=== PATIENT | female | born 1985 | race Caucasian/White ===

== ENCOUNTER 2019-04-27 13:19 | Inpatient (IN) | payer BC, OTHER ==
[~2019-04-27] VITALS: Ht 170.2 cm; Wt 105.0 kg
[2019-04-27] VITALS (14 sets, daily range): BP systolic 96–122; BP diastolic 53–78
[~2019-04-27 13:19] MED LIST: PANT-47 PO; SUCR1ORA12 PO
[2019-04-27 13:58] LABS: BASOPHILS # (AUTO) 0.1 X10'3 (0-0.2); BASOPHILS % (AUTO) 0.7 % (0-1); EOSINOPHILS # (AUTO) 0.1 X10'3 (0-0.9); EOSINOPHILS % (AUTO) 1.1 % (0-6); LYMPHOCYTES % (AUTO) 25.4 % (21-51); MEAN CORPUSCULAR HEMOGLOBIN 26.8 PG (27.0-31.0); MEAN CORPUSCULAR HGB CONC 32.3 g/dL (33.0-36.5); MEAN PLATELET VOLUME 7.8 FL (7.4-10.4); MONOCYTES # (AUTO) 0.7 X10'3 (0-0.9); MONOCYTES % (AUTO) 6.2 % (2-12); NEUTROPHILS # (AUTO) 7.8 X10'3 (1.8-7.7); NEUTROPHILS % (AUTO) 66.6 % (42-75); PLATELET COUNT 401 X10'3 (140-440); RED BLOOD COUNT 2.41 X10'6 (4.20-5.60); RED CELL DISTRIBUTION WIDTH 15.6 % (11.5-14.5); WHITE BLOOD COUNT 11.7 X10'3 (4.5-11.0)
[2019-04-27 14:03] LABS: HEMOGLOBIN 6.4 g/dl (12.0-16.0)
[2019-04-27] MEDS ORDERED: pantoprazole IV 80 MG in normal saline 100ml IV soln 100 ML IV ONE (14:05)
[2019-04-27] MEDS ORDERED: normal saline 1000ML IV soln IV ONE (14:05)
[2019-04-27] MEDS ORDERED: ESOMEPRAZOLE 40 MG VIAL IV ONE (14:11)
[2019-04-27 14:21] LABS: ALANINE AMINOTRANSFERASE 29 U/L (12-78); ALBUMIN 3.8 G/DL (3.4-5.0); ALBUMIN/GLOBULIN RATIO 1.2 (1.1-1.5); ALKALINE PHOSPHATASE 60 IU/L (46-116); ANION GAP 8 (8-16); ASPARTATE AMINO TRANSFERASE 18 U/L (10-37); BILIRUBIN,TOTAL 0.2 MG/DL (0.1-1.0); BLOOD UREA NITROGEN 16 MG/DL (7-18); BUN/CREATININE RATIO 23.9 (6.6-38.0); CALCIUM 8.8 MG/DL (8.5-10.1); CHLORIDE 107 MMOL/L (99-107); CREATININE 0.67 MG/DL (0.40-0.90); GLUCOSE 115 MG/DL (70-104); POTASSIUM 3.7 MMOL/L (3.5-5.1); SODIUM 139 MMOL/L (135-145); TOTAL CARBON DIOXIDE 23.6 MMOL/L (24-32); TOTAL PROTEIN 7.1 G/DL (6.4-8.2); eGFR > 90 ML/MIN
[2019-04-27 14:38] LABS: D-DIMER 0.35 MG/L FEU (0-0.50)
[2019-04-27] MEDS ORDERED: PANT-47 PO (15:35)
[2019-04-27] MEDS ORDERED: MULT-933 PO (15:35)
[2019-04-27] MEDS ORDERED: SUCR1ORA PO (15:35)
[2019-04-27] MEDS ORDERED: ondansetron/PF 4mg/2ml inj IV PRN (16:00)
[2019-04-27] MEDS ORDERED: acetaminophen 325mg tablet PO PRN (16:00)
[2019-04-27] MEDS ORDERED: magnesium Cl slow-release 64mg tablet PO PRN (16:00)
[2019-04-27] MEDS ORDERED: potassium Cl 20 mEq SR tablet PO PRN (16:00)
[2019-04-27] MEDS ORDERED: pantoprazole 40MG/NS 100ML BAG 100 ML IV SCH (16:00)
[2019-04-27] MEDS ORDERED: morphine 2 MG/ML inj. syringe IV PRN (16:00)
[2019-04-27] MEDS ORDERED: potassium CL 10mEq/100ml bag 100 ML IV PRN ×2 (16:00)
[2019-04-27] MEDS ORDERED: magnesium 4gm in 100ml NS 100 ML IV PRN (16:00)
[2019-04-27] MEDS ORDERED: magnesium 2GM in 50ml NS 50 ML IV PRN (16:00)
--- NOTE | 2019-04-27 16:35 | NUR ---
Page sent to Dr Kirby at this time to sign blood transfusion consent.
--- NOTE | 2019-04-27 16:39 | NUR ---
Per Dr Kirby via telephone; hold blood transfusion until "scope" procedure is finished.
[2019-04-27] MEDS: HYDROcodone/acetaminophen 5mg/325mg tablet PO PRN (17:14)
--- NOTE | 2019-04-27 17:40 | NUR ---
Received report from GAGAN Morin in ED. Patient arrived to floor with BP 114/59, HR 100, O2 saturation 100% on room air, RR 18 temp of 97.9 F. Patient scheduled for scope procedure in GI lab. Called GI lab and patient to leave shortly for procedure.
[2019-04-27] MEDS ORDERED: LIDOcaine Viscous 15ml cup ONE (18:22)
[2019-04-27] MEDS ORDERED: MIDAZolam 5mg/5ml vial ONE ×2 (18:22→18:55)
[2019-04-27] MEDS ORDERED: fentaNYL/PF 50MCG/1 ML 2ML syringe ONE ×2 (18:22→18:55)
--- NOTE | 2019-04-27 18:40 | NUR ---
Patient in room [facility]. I have received report from GAGAN Khanna and had the opportunity to ask questions and assume patient care. Addendum: 04/27/19 at 1840 by Arianna Avalos RN Amended: Links added. Addendum: 04/27/19 at 1842 by Arianna Avalos RN patient was taken at GI lab at 1820
--- NOTE | 2019-04-27 18:40 | NUR ---
patient left for GI lab, pt stable and appropriate for transfer.
--- NOTE | 2019-04-27 18:40 | NUR ---
Problems reprioritized. Patient report given, questions answered & plan of care reviewed with Carola Zaman RN.
[2019-04-27] MEDS ORDERED: PEG 3350/Na sulf,bicarb,Cl/KCl oral sol 4 liter bottle PO ONE (19:25)
--- NOTE | 2019-04-27 19:50 | NUR ---
PATIENT JUST CAME BACK FROM GI LAB
--- NOTE | 2019-04-27 19:54 | NUR ---
Patient in room [facility]. I have received report from MARK SANTOS RN and had the opportunity to ask questions and assume patient care.
[2019-04-27] MEDS: heparin, porcine 5000 units/ml vial SQ SCH (20:00)
[2019-04-27] MEDS: docusate sod 100mg capsule PO SCH (20:00)
[2019-04-27] MEDS ORDERED: temazepam 15mg capsule PO PRN (21:00)
[2019-04-27] MEDS: acetaminophen 325mg tablet PO PRN (22:12)
[2019-04-27] MEDS: normal saline 1000ml 1,000 ML IV SCH (23:25)
[2019-04-28] VITALS (16 sets, daily range): BP systolic 96–116; BP diastolic 52–67
[2019-04-28] MEDS: normal saline 1000ml 1,000 ML IV SCH ×2 (01:57→12:10)
[2019-04-28 02:17] LABS: BASOPHILS % (AUTO) 0.7 % (0-1); EOSINOPHILS # (AUTO) 0.1 X10'3 (0-0.9); EOSINOPHILS % (AUTO) 1.4 % (0-6); LYMPHOCYTES % (AUTO) 41.9 % (21-51); MEAN CORPUSCULAR HEMOGLOBIN 27.6 PG (27.0-31.0); MEAN CORPUSCULAR HGB CONC 33.5 g/dL (33.0-36.5); MEAN CORPUSCULAR VOLUME 82.5 FL (78-98); MEAN PLATELET VOLUME 7.8 FL (7.4-10.4); MONOCYTES # (AUTO) 0.5 X10'3 (0-0.9); MONOCYTES % (AUTO) 6.8 % (2-12); NEUTROPHILS # (AUTO) 3.5 X10'3 (1.8-7.7); NEUTROPHILS % (AUTO) 49.2 % (42-75); PLATELET COUNT 325 X10'3 (140-440); RED BLOOD COUNT 2.48 X10'6 (4.20-5.60); RED CELL DISTRIBUTION WIDTH 14.8 % (11.5-14.5)
[2019-04-28 02:20] LABS: HEMATOCRIT 20.4 % (35.0-45.0); HEMOGLOBIN 6.8 g/dl (12.0-16.0)
[2019-04-28 02:31] LABS: ALBUMIN 3.1 G/DL (3.4-5.0); ANION GAP 7 (8-16); BLOOD UREA NITROGEN 10 MG/DL (7-18); BUN/CREATININE RATIO 16.9 (6.6-38.0); CALCIUM 8.3 MG/DL (8.5-10.1); CHLORIDE 111 MMOL/L (99-107); CREATININE 0.59 MG/DL (0.40-0.90); GLUCOSE 94 MG/DL (70-104); MAGNESIUM 1.9 MG/DL (1.5-2.4); POTASSIUM 3.4 MMOL/L (3.5-5.1); SODIUM 142 MMOL/L (135-145); TOTAL CARBON DIOXIDE 23.6 MMOL/L (24-32); eGFR > 90 ML/MIN
--- NOTE | 2019-04-28 02:45 | NUR ---
H/H resulted at 6.8/20.[address] Marquez with an order of 1 unit PRBC to transfuse. Orders carried out. Addendum: 04/28/19 at 0329 by Arianna Avalos RN Amended: Links added.
[2019-04-28] MEDS: potassium Cl 20 mEq SR tablet PO PRN ×3 (03:10→17:52)
--- NOTE | 2019-04-28 06:30 | NUR ---
Patient in room [facility]. I have received report from Carola Ayala RN and had the opportunity to ask questions and assume patient care.
--- NOTE | 2019-04-28 06:30 | NUR ---
Problems reprioritized. Patient report given, questions answered & plan of care reviewed with GAGAN Stewart.
[2019-04-28] MEDS: docusate sod 100mg capsule PO SCH ×2 (08:00→21:13)
[2019-04-28] MEDS: K and/or MAG REPLACEMENT MC SCH (08:00)
[2019-04-28] MEDS: heparin, porcine 5000 units/ml vial SQ SCH ×2 (08:00→21:13)
[2019-04-28 09:16] LABS: HEMATOCRIT 22.7 % (35.0-45.0); HEMOGLOBIN 7.6 g/dl (12.0-16.0); MEAN CORPUSCULAR HEMOGLOBIN 27.5 PG (27.0-31.0); MEAN CORPUSCULAR HGB CONC 33.3 g/dL (33.0-36.5); MEAN CORPUSCULAR VOLUME 82.7 FL (78-98); MEAN PLATELET VOLUME 8.1 FL (7.4-10.4); PLATELET COUNT 345 X10'3 (140-440); RED BLOOD COUNT 2.75 X10'6 (4.20-5.60); RED CELL DISTRIBUTION WIDTH 15.1 % (11.5-14.5); WHITE BLOOD COUNT 6.7 X10'3 (4.5-11.0)
[2019-04-28] MEDS: ESOMEPRAZOLE 40 MG VIAL IV SCH ×2 (09:56→21:10)
[2019-04-28] MEDS: HYDROcodone/acetaminophen 5mg/325mg tablet PO PRN ×2 (09:58→17:52)
--- NOTE | 2019-04-28 12:23 | NUR ---
informed of low BP of 97/67. No new orders at this time.
--- NOTE | 2019-04-28 14:27 | NUR ---
Pt taken down to GI lab via W/C.
[2019-04-28] MEDS ORDERED: fentaNYL/PF 50MCG/1 ML 2ML syringe ONE (14:36)
[2019-04-28] MEDS ORDERED: MIDAZolam 5mg/5ml vial ONE (14:36)
--- NOTE | 2019-04-28 18:24 | NUR ---
Patient in room [facility]. I have received report from GAGAN Stewart and had the opportunity to ask questions and assume patient care. Addendum: 04/28/19 at 1824 by Arianna Avalos RN Amended: Links added.
--- NOTE | 2019-04-28 18:27 | NUR ---
Problems reprioritized. Patient report given, questions answered & plan of care reviewed with Carola Ayala RN.
[2019-04-29] VITALS (8 sets, daily range): BP systolic 94–110; BP diastolic 57–71
[2019-04-29] MEDS: normal saline 1000ml 1,000 ML IV SCH ×3 (00:54→17:57)
[2019-04-29] MEDS: acetaminophen 325mg tablet PO PRN ×2 (03:56→11:38)
[2019-04-29 06:26] LABS: BASOPHILS % (AUTO) 0.7 % (0-1); EOSINOPHILS # (AUTO) 0.2 X10'3 (0-0.9); EOSINOPHILS % (AUTO) 2.4 % (0-6); HEMOGLOBIN 7.1 g/dl (12.0-16.0); LYMPHOCYTES # (AUTO) 2.6 X10'3 (1.1-4.8); LYMPHOCYTES % (AUTO) 36.6 % (21-51); MEAN CORPUSCULAR HEMOGLOBIN 27.8 PG (27.0-31.0); MEAN CORPUSCULAR HGB CONC 33.4 g/dL (33.0-36.5); MEAN CORPUSCULAR VOLUME 83.1 FL (78-98); MEAN PLATELET VOLUME 7.9 FL (7.4-10.4); MONOCYTES # (AUTO) 0.5 X10'3 (0-0.9); MONOCYTES % (AUTO) 6.8 % (2-12); NEUTROPHILS # (AUTO) 3.8 X10'3 (1.8-7.7); NEUTROPHILS % (AUTO) 53.5 % (42-75); PLATELET COUNT 337 X10'3 (140-440); RED BLOOD COUNT 2.55 X10'6 (4.20-5.60); RED CELL DISTRIBUTION WIDTH 15.4 % (11.5-14.5)
[2019-04-29 06:27] LABS: ALBUMIN 2.9 G/DL (3.4-5.0); ANION GAP 7 (8-16); BLOOD UREA NITROGEN 3 MG/DL (7-18); BUN/CREATININE RATIO 5.7 (6.6-38.0); CALCIUM 8.3 MG/DL (8.5-10.1); CHLORIDE 111 MMOL/L (99-107); CREATININE 0.53 MG/DL (0.40-0.90); GLUCOSE 92 MG/DL (70-104); MAGNESIUM 1.8 MG/DL (1.5-2.4); POTASSIUM 3.7 MMOL/L (3.5-5.1); SODIUM 142 MMOL/L (135-145); TOTAL CARBON DIOXIDE 23.6 MMOL/L (24-32); eGFR > 90 ML/MIN
--- NOTE | 2019-04-29 06:30 | NUR ---
Patient in room [facility]. I have received report from Carola Ayala RN and had the opportunity to ask questions and assume patient care.
--- NOTE | 2019-04-29 06:39 | NUR ---
Problems reprioritized. Patient report given, questions answered & plan of care reviewed with GAGAN Stewart. Addendum: 04/29/19 at 0639 by Arianna Avalos RN Amended: Links added.
[2019-04-29 06:57] LABS: HEMATOCRIT 21.2 % (35.0-45.0)
[2019-04-29] MEDS: heparin, porcine 5000 units/ml vial SQ SCH (08:00)
[2019-04-29] MEDS: docusate sod 100mg capsule PO SCH (08:00)
[2019-04-29] MEDS: K and/or MAG REPLACEMENT MC SCH (08:00)
[2019-04-29] MEDS: ESOMEPRAZOLE 40 MG VIAL IV SCH (08:15)
--- NOTE | 2019-04-29 10:52 | NUR ---
Dr. Langley informed of low BP this AM of . No new orders at this time.
[2019-04-29 17:29] LABS: HEMATOCRIT 26.6 % (35.0-45.0); HEMOGLOBIN 9.1 g/dl (12.0-16.0); MEAN CORPUSCULAR HGB CONC 34.3 g/dL (33.0-36.5); MEAN CORPUSCULAR VOLUME 84.6 FL (78-98); PLATELET COUNT 434 X10'3 (140-440); RED BLOOD COUNT 3.14 X10'6 (4.20-5.60); RED CELL DISTRIBUTION WIDTH 15.7 % (11.5-14.5)
--- NOTE | 2019-04-29 18:14 | NUR ---
Patient discharged with all belongings. Pt walked to front lobby with PCT.
[2019-04-29] MEDS ORDERED: pantoprazole 40mg Tablet.DR PO SCH (20:00)
[2019-05-03 14:01] LABS: OCCULT BLOOD STOOL POSITIVE (Neg)
== END 2019-04-29 18:08 | disposition home or self-care (01) | DRG 378 ==
LOC: ER 13:20 → SUR 3N 17:17 → CMPBEDREQ 19:42
PROVIDERS: ADMIT Internal Medicine; ATTEND Family Medicine
PROC: 30233N1 Transfusion of Nonautologous Red Blood Cells into Peripheral Vein, Percutaneous Approach (ICD-10-PCS; 2019-04-27)
PROC: 0DJ08ZZ Inspection of Upper Intestinal Tract, Via Natural or Artificial Opening Endoscopic (ICD-10-PCS; 2019-04-27)
PROC: 0DJD8ZZ Inspection of Lower Intestinal Tract, Via Natural or Artificial Opening Endoscopic (ICD-10-PCS; principal; 2019-04-28)
PROC: 30233N1 Transfusion of Nonautologous Red Blood Cells into Peripheral Vein, Percutaneous Approach (ICD-10-PCS; 2019-04-28)
PROC: 30233N1 Transfusion of Nonautologous Red Blood Cells into Peripheral Vein, Percutaneous Approach (ICD-10-PCS; 2019-04-29)
DX: K92.1 Melena (principal); D62 Acute posthemorrhagic anemia; K64.9 Unspecified hemorrhoids; R19.7 Diarrhea, unspecified; E87.6 Hypokalemia; Z60.2 Problems related to living alone; R42 Dizziness and giddiness; Z98.84 Bariatric surgery status; Z88.5 Allergy status to narcotic agent
CPT/HCPCS: 36415; 36430; 43235; 45378; 71045; 80048; 80053; 82272; 83735; 84484; 85025; 85027; 85379; 86885; 86900; 86901; 86920; 87081; 93005; 96365; 96375; 97161; 97530; 99152; 99153; 99285; A4620; C9113; G0378; J2250; J2270; J3010; J7030; J7040; P9016

== ENCOUNTER 2019-05-19 08:41 | Outpatient (CLI) | payer OTHER ==
[~2019-05-19 08:41] MED LIST changes: +MULT-933 PO; +SUCR1ORA PO; -SUCR1ORA12 PO
[2019-05-19 09:36] LABS: BASOPHILS # (AUTO) 0.1 X10'3 (0-0.2); EOSINOPHILS # (AUTO) 0.1 X10'3 (0-0.9); EOSINOPHILS % (AUTO) 2.2 % (0-6); HEMATOCRIT 27.4 % (35.0-45.0); HEMOGLOBIN 8.8 g/dl (12.0-16.0); LYMPHOCYTES # (AUTO) 2.3 X10'3 (1.1-4.8); LYMPHOCYTES % (AUTO) 41.3 % (21-51); MEAN CORPUSCULAR HEMOGLOBIN 25.6 PG (27.0-31.0); MEAN PLATELET VOLUME 7.6 FL (7.4-10.4); MONOCYTES # (AUTO) 0.4 X10'3 (0-0.9); NEUTROPHILS # (AUTO) 2.6 X10'3 (1.8-7.7); NEUTROPHILS % (AUTO) 47.5 % (42-75); PLATELET COUNT 396 X10'3 (140-440); RED BLOOD COUNT 3.43 X10'6 (4.20-5.60); RED CELL DISTRIBUTION WIDTH 18.5 % (11.5-14.5); WHITE BLOOD COUNT 5.5 X10'3 (4.5-11.0)
== END 2019-05-19 23:59 | disposition home or self-care (01) ==
LOC: LAB 08:41
PROVIDERS: ATTEND Family Medicine
DX: D50.9 Iron deficiency anemia, unspecified (principal)
CPT/HCPCS: 36415; 85025

== ENCOUNTER 2019-06-02 10:41 | Outpatient (CLI) | payer OTHER ==
[2019-06-02 11:24] LABS: BASOPHILS # (AUTO) 0.1 X10'3 (0-0.2); BASOPHILS % (AUTO) 0.9 % (0-1); EOSINOPHILS # (AUTO) 0.1 X10'3 (0-0.9); EOSINOPHILS % (AUTO) 2.2 % (0-6); LYMPHOCYTES # (AUTO) 1.9 X10'3 (1.1-4.8); LYMPHOCYTES % (AUTO) 30.8 % (21-51); MEAN CORPUSCULAR HEMOGLOBIN 23.4 PG (27.0-31.0); MEAN CORPUSCULAR HGB CONC 30.8 g/dL (33.0-36.5); MEAN CORPUSCULAR VOLUME 76.1 FL (78-98); MEAN PLATELET VOLUME 7.4 FL (7.4-10.4); MONOCYTES # (AUTO) 0.4 X10'3 (0-0.9); MONOCYTES % (AUTO) 7.3 % (2-12); NEUTROPHILS # (AUTO) 3.6 X10'3 (1.8-7.7); NEUTROPHILS % (AUTO) 58.8 % (42-75); PLATELET COUNT 527 X10'3 (140-440); RED BLOOD COUNT 2.65 X10'6 (4.20-5.60); RED CELL DISTRIBUTION WIDTH 19.1 % (11.5-14.5); WHITE BLOOD COUNT 6.1 X10'3 (4.5-11.0)
[2019-06-02 11:34] LABS: HEMOGLOBIN 6.2 g/dl (12.0-16.0)
[2019-06-02 11:35] LABS: HEMATOCRIT 20.1 % (35.0-45.0)
[2019-06-02 11:50] LABS: ANISOCYTOSIS 2+; HYPOCHROMASIA 2+; LARGE PLATELETS FEW; MICROCYTOSIS 1+; PLATELET ESTIMATE INCREASED
[2019-06-02 11:55] LABS: % IRON SATURATION 2 % (11-46); IRON 8 UG/DL (49-151); TOTAL IRON BINDING CAPACITY 480 UG/DL (259-388)
[2019-06-02 11:57] LABS: ALANINE AMINOTRANSFERASE 34 U/L (12-78); ALBUMIN 3.9 G/DL (3.4-5.0); ALBUMIN/GLOBULIN RATIO 1.1 (1.1-1.5); ALKALINE PHOSPHATASE 74 IU/L (46-116); ANION GAP 10 (8-16); ASPARTATE AMINO TRANSFERASE 23 U/L (10-37); BILIRUBIN,TOTAL 0.2 MG/DL (0.1-1.0); BLOOD UREA NITROGEN 14 MG/DL (7-18); BUN/CREATININE RATIO 17.9 (6.6-38.0); CALCIUM 8.8 MG/DL (8.5-10.1); CHLORIDE 106 MMOL/L (99-107); CREATININE 0.78 MG/DL (0.40-0.90); GLUCOSE 103 MG/DL (70-104); POTASSIUM 4.1 MMOL/L (3.5-5.1); SODIUM 141 MMOL/L (135-145); TOTAL CARBON DIOXIDE 25.2 MMOL/L (24-32); TOTAL PROTEIN 7.4 G/DL (6.4-8.2); eGFR 85 ML/MIN
[2019-06-02 12:01] LABS: FERRITIN 5 NG/ML (8-252)
[2019-06-02] MEDS ORDERED: IRON150C13 PO (15:58)
== END 2019-06-02 23:59 | disposition home or self-care (01) ==
LOC: LAB 10:41
PROVIDERS: ATTEND Family Medicine
DX: D50.9 Iron deficiency anemia, unspecified (principal)
CPT/HCPCS: 36415; 80053; 82728; 83540; 83550; 85025

== ENCOUNTER 2019-06-02 12:35 | Inpatient (IN) | payer OTHER ==
[~2019-06-02] VITALS: Ht 170.2 cm; Wt 104.0 kg
[2019-06-02] VITALS (7 sets, daily range): BP systolic 93–126; BP diastolic 55–71
[2019-06-02] MEDS ORDERED: normal saline 1000ML IV soln IV ONE (13:35)
[2019-06-02 14:13] LABS: BASOPHILS % (AUTO) 0.6 % (0-1); EOSINOPHILS # (AUTO) 0.1 X10'3 (0-0.9); EOSINOPHILS % (AUTO) 1.1 % (0-6); LYMPHOCYTES # (AUTO) 2.8 X10'3 (1.1-4.8); LYMPHOCYTES % (AUTO) 34.8 % (21-51); MEAN CORPUSCULAR HEMOGLOBIN 23.9 PG (27.0-31.0); MEAN CORPUSCULAR HGB CONC 31.5 g/dL (33.0-36.5); MEAN CORPUSCULAR VOLUME 75.8 FL (78-98); MEAN PLATELET VOLUME 7.2 FL (7.4-10.4); MONOCYTES # (AUTO) 0.4 X10'3 (0-0.9); MONOCYTES % (AUTO) 4.6 % (2-12); NEUTROPHILS # (AUTO) 4.7 X10'3 (1.8-7.7); NEUTROPHILS % (AUTO) 58.9 % (42-75); PLATELET COUNT 567 X10'3 (140-440); RED CELL DISTRIBUTION WIDTH 18.6 % (11.5-14.5)
[2019-06-02 14:17] LABS: HEMATOCRIT 20.5 % (35.0-45.0); HEMOGLOBIN 6.5 g/dl (12.0-16.0)
[2019-06-02 14:30] LABS: ALANINE AMINOTRANSFERASE 40 U/L (12-78); ALBUMIN 4.2 G/DL (3.4-5.0); ALBUMIN/GLOBULIN RATIO 1.1 (1.1-1.5); ALKALINE PHOSPHATASE 75 IU/L (46-116); ANION GAP 10 (8-16); ASPARTATE AMINO TRANSFERASE 29 U/L (10-37); BILIRUBIN,TOTAL 0.3 MG/DL (0.1-1.0); BLOOD UREA NITROGEN 13 MG/DL (7-18); BUN/CREATININE RATIO 17.1 (6.6-38.0); CALCIUM 9.3 MG/DL (8.5-10.1); CHLORIDE 105 MMOL/L (99-107); CREATININE 0.76 MG/DL (0.40-0.90); GLUCOSE 93 MG/DL (70-104); SODIUM 141 MMOL/L (135-145); TOTAL CARBON DIOXIDE 26.5 MMOL/L (24-32); TOTAL PROTEIN 8.1 G/DL (6.4-8.2); eGFR 87 ML/MIN
[2019-06-02 14:38] LABS: LARGE PLATELETS FEW; PLATELET ESTIMATE INCREASED
[2019-06-02 14:39] LABS: ANISOCYTOSIS 2+; MICROCYTOSIS 1+
[2019-06-02 14:40] LABS: POLYCHROMASIA 1+
[2019-06-02 14:41] LABS: HYPOCHROMASIA 1+
[2019-06-02] MEDS ORDERED: pantoprazole 40 MG vial IV ONE (14:50)
[2019-06-02] MEDS ORDERED: iohexol 350MG/ML 100ml bottle IV ONE (15:19)
[2019-06-02] MEDS: pantoprazole 40MG/NS 100ML BAG 100 ML IV SCH ×2 (15:36→22:07)
[2019-06-02] MEDS ORDERED: HYDROmorphone inj. 0.5 MG/0.5 ML DISP.SYRIN IV PRN (15:55)
[2019-06-02] MEDS ORDERED: HYDROmorphone 1 mg/ml syringe IV PRN (15:55)
[2019-06-02] MEDS ORDERED: acetaminophen 650mg rectal suppository RC PRN (15:55)
[2019-06-02] MEDS ORDERED: ondansetron/PF 4mg/2ml inj IV PRN (15:55)
[2019-06-02] MEDS ORDERED: bisacodyl 10mg suppository rectal RC PRN (15:55)
[2019-06-02] MEDS ORDERED: IRON150C13 PO (15:58)
[2019-06-02] MEDS ORDERED: pantoprazole 40MG/NS 100ML BAG 100 ML IV SCH (16:00)
[2019-06-02] MEDS: normal saline 1000ml 1,000 ML IV SCH (16:52)
--- NOTE | 2019-06-02 19:52 | NUR ---
report called from Sebastian FARAH in ED
--- NOTE | 2019-06-02 20:00 | NUR ---
pt arrived to unit via gurney, accompanied by . vitals taken, in no apparent distress. will continue to monitor
[2019-06-02 21:13] LABS: HEMATOCRIT 22.1 % (35.0-45.0); MEAN CORPUSCULAR HEMOGLOBIN 24.6 PG (27.0-31.0); MEAN CORPUSCULAR HGB CONC 31.6 g/dL (33.0-36.5); MEAN PLATELET VOLUME 7.2 FL (7.4-10.4); PLATELET COUNT 455 X10'3 (140-440); RED BLOOD COUNT 2.83 X10'6 (4.20-5.60); RED CELL DISTRIBUTION WIDTH 20.2 % (11.5-14.5); WHITE BLOOD COUNT 9.5 X10'3 (4.5-11.0)
[2019-06-03] VITALS (12 sets, daily range): BP systolic 92–123; BP diastolic 56–77
[2019-06-03] MEDS: pantoprazole 40MG/NS 100ML BAG 100 ML IV SCH ×3 (01:44→11:00)
[2019-06-03] MEDS: normal saline 1000ml 1,000 ML IV SCH ×2 (01:55→11:55)
[2019-06-03 05:54] LABS: HEMATOCRIT 22.6 % (35.0-45.0); HEMOGLOBIN 7.4 g/dl (12.0-16.0); MEAN CORPUSCULAR HEMOGLOBIN 25.5 PG (27.0-31.0); MEAN CORPUSCULAR HGB CONC 32.7 g/dL (33.0-36.5); MEAN PLATELET VOLUME 7.3 FL (7.4-10.4); PLATELET COUNT 385 X10'3 (140-440); RED CELL DISTRIBUTION WIDTH 19.5 % (11.5-14.5)
[2019-06-03 06:12] LABS: ALANINE AMINOTRANSFERASE 32 U/L (12-78); ALBUMIN 3.2 G/DL (3.4-5.0); ALBUMIN/GLOBULIN RATIO 1.1 (1.1-1.5); ALKALINE PHOSPHATASE 57 IU/L (46-116); ANION GAP 11 (8-16); ASPARTATE AMINO TRANSFERASE 22 U/L (10-37); BILIRUBIN,TOTAL 0.7 MG/DL (0.1-1.0); BLOOD UREA NITROGEN 9 MG/DL (7-18); BUN/CREATININE RATIO 13.4 (6.6-38.0); CALCIUM 8.4 MG/DL (8.5-10.1); CHLORIDE 111 MMOL/L (99-107); CREATININE 0.67 MG/DL (0.40-0.90); GLUCOSE 87 MG/DL (70-104); POTASSIUM 3.7 MMOL/L (3.5-5.1); SODIUM 144 MMOL/L (135-145); TOTAL CARBON DIOXIDE 22.5 MMOL/L (24-32); eGFR > 90 ML/MIN
--- NOTE | 2019-06-03 06:15 | NUR ---
Patient in room [facility]. I have received report from Elvin FARAH and had the opportunity to ask questions and assume patient care.
--- NOTE | 2019-06-03 06:48 | NUR ---
Problems reprioritized. Patient report given, questions answered & plan of care reviewed with GAGAN Stewart.
[2019-06-03] MEDS ORDERED: fentaNYL/PF 50MCG/1 ML 2ML syringe ONE (09:03)
[2019-06-03] MEDS ORDERED: LIDOcaine Viscous 15ml cup ONE (09:04)
[2019-06-03] MEDS ORDERED: MIDAZolam 5mg/5ml vial ONE (09:04)
[2019-06-03 09:24] LABS: HEMATOCRIT 24.9 % (35.0-45.0); HEMOGLOBIN 8.1 g/dl (12.0-16.0); MEAN CORPUSCULAR HEMOGLOBIN 25.3 PG (27.0-31.0); MEAN CORPUSCULAR HGB CONC 32.3 g/dL (33.0-36.5); MEAN CORPUSCULAR VOLUME 78.3 FL (78-98); MEAN PLATELET VOLUME 7.4 FL (7.4-10.4); PLATELET COUNT 446 X10'3 (140-440); RED BLOOD COUNT 3.18 X10'6 (4.20-5.60); RED CELL DISTRIBUTION WIDTH 19.7 % (11.5-14.5); WHITE BLOOD COUNT 6.5 X10'3 (4.5-11.0)
[2019-06-03 15:12] LABS: HEMATOCRIT 25.7 % (35.0-45.0); HEMOGLOBIN 8.4 g/dl (12.0-16.0); MEAN CORPUSCULAR HEMOGLOBIN 25.8 PG (27.0-31.0); MEAN CORPUSCULAR HGB CONC 32.8 g/dL (33.0-36.5); MEAN CORPUSCULAR VOLUME 78.7 FL (78-98); MEAN PLATELET VOLUME 7.4 FL (7.4-10.4); PLATELET COUNT 459 X10'3 (140-440); RED BLOOD COUNT 3.27 X10'6 (4.20-5.60); RED CELL DISTRIBUTION WIDTH 19.8 % (11.5-14.5); WHITE BLOOD COUNT 8.1 X10'3 (4.5-11.0)
[2019-06-03] MEDS ORDERED: acetaminophen 325mg tablet PO PRN (15:40)
== END 2019-06-03 16:00 | disposition home or self-care (01) | DRG 379 ==
LOC: ER 12:36 → SUR 3N 20:08 → CMPBEDREQ 21:25
PROVIDERS: ADMIT Family Medicine; ATTEND Family Medicine
PROC: 30233N1 Transfusion of Nonautologous Red Blood Cells into Peripheral Vein, Percutaneous Approach (ICD-10-PCS; 2019-06-02)
PROC: 0DBA8ZX Excision of Jejunum, Via Natural or Artificial Opening Endoscopic, Diagnostic (ICD-10-PCS; principal; 2019-06-03)
PROC: 30233N1 Transfusion of Nonautologous Red Blood Cells into Peripheral Vein, Percutaneous Approach (ICD-10-PCS; 2019-06-03)
DX: K92.1 Melena (principal); D64.9 Anemia, unspecified; E86.1 Hypovolemia; E86.9 Volume depletion, unspecified; I95.89 Other hypotension; Z60.2 Problems related to living alone; Z80.0 Family history of malignant neoplasm of digestive organs; Z80.3 Family history of malignant neoplasm of breast; Z98.84 Bariatric surgery status; Z98.0 Intestinal bypass and anastomosis status; Z88.5 Allergy status to narcotic agent; Z79.899 Other long term (current) drug therapy
CPT/HCPCS: 36415; 36430; 43235; 43247; 71045; 74174; 80053; 85025; 85027; 85610; 86885; 86900; 86901; 86920; 87081; 93005; 96361; 96374; 99152; 99291; A4620; C9113; G0378; J1170; J2250; J3010; J7030; J7040; P9016; Q9967

== ENCOUNTER 2019-06-21 09:38 | Outpatient (CLI) | payer OTHER ==
[~2019-06-21 09:38] MED LIST changes: +IRON150C13 PO; -SUCR1ORA PO
[2019-06-21 13:33] LABS: BASOPHILS # (AUTO) 0.1 X10'3 (0-0.2); BASOPHILS % (AUTO) 0.9 % (0-1); EOSINOPHILS # (AUTO) 0.2 X10'3 (0-0.9); EOSINOPHILS % (AUTO) 2.1 % (0-6); HEMATOCRIT 27.8 % (35.0-45.0); HEMOGLOBIN 8.8 g/dl (12.0-16.0); LYMPHOCYTES # (AUTO) 3.2 X10'3 (1.1-4.8); LYMPHOCYTES % (AUTO) 33.6 % (21-51); MEAN CORPUSCULAR HEMOGLOBIN 23.3 PG (27.0-31.0); MEAN CORPUSCULAR HGB CONC 31.4 g/dL (33.0-36.5); MEAN PLATELET VOLUME 7.9 FL (7.4-10.4); MONOCYTES # (AUTO) 0.7 X10'3 (0-0.9); MONOCYTES % (AUTO) 7.1 % (2-12); NEUTROPHILS # (AUTO) 5.4 X10'3 (1.8-7.7); NEUTROPHILS % (AUTO) 56.3 % (42-75); PLATELET COUNT 396 X10'3 (140-440); RED BLOOD COUNT 3.76 X10'6 (4.20-5.60); RED CELL DISTRIBUTION WIDTH 21.4 % (11.5-14.5); WHITE BLOOD COUNT 9.5 X10'3 (4.5-11.0)
[2019-06-21 13:54] LABS: ANISOCYTOSIS 3+; MICROCYTOSIS 1+; PLATELET ESTIMATE NORMAL
[2019-06-21 13:55] LABS: HYPOCHROMASIA 2+
== END 2019-06-21 23:59 | disposition home or self-care (01) ==
LOC: LAB 09:38
PROVIDERS: ATTEND Family Medicine
DX: D64.9 Anemia, unspecified (principal)
CPT/HCPCS: 36415; 85025

== ENCOUNTER 2019-07-12 11:24 | Outpatient (CLI) | payer OTHER ==
[2019-07-12 12:20] LABS: BASOPHILS # (AUTO) 0.1 X10'3 (0-0.2); BASOPHILS % (AUTO) 1.6 % (0-1); EOSINOPHILS # (AUTO) 0.1 X10'3 (0-0.9); EOSINOPHILS % (AUTO) 2.1 % (0-6); HEMATOCRIT 26.6 % (35.0-45.0); HEMOGLOBIN 8.2 g/dl (12.0-16.0); LYMPHOCYTES # (AUTO) 2.4 X10'3 (1.1-4.8); MEAN CORPUSCULAR HEMOGLOBIN 21.9 PG (27.0-31.0); MEAN CORPUSCULAR VOLUME 70.9 FL (78-98); MONOCYTES # (AUTO) 0.6 X10'3 (0-0.9); MONOCYTES % (AUTO) 9.1 % (2-12); NEUTROPHILS # (AUTO) 3.6 X10'3 (1.8-7.7); NEUTROPHILS % (AUTO) 52.2 % (42-75); PLATELET COUNT 363 X10'3 (140-440); RED BLOOD COUNT 3.76 X10'6 (4.20-5.60); RED CELL DISTRIBUTION WIDTH 20.4 % (11.5-14.5); WHITE BLOOD COUNT 6.9 X10'3 (4.5-11.0)
[2019-07-12 12:57] LABS: FERRITIN 6 NG/ML (8-252)
[2019-07-12 13:41] LABS: % IRON SATURATION 3 % (11-46); IRON 15 UG/DL (49-151); TOTAL IRON BINDING CAPACITY 482 UG/DL (259-388)
[2019-07-12 13:49] LABS: PLATELET ESTIMATE NORMAL
[2019-07-12 13:50] LABS: ANISOCYTOSIS 3+; HYPOCHROMASIA 3+; MICROCYTOSIS 1+
[2019-07-12 13:51] LABS: POIKILOCYTOSIS FEW
== END 2019-07-12 23:59 | disposition home or self-care (01) ==
LOC: LAB 11:24
PROVIDERS: ATTEND Family Medicine
DX: D64.9 Anemia, unspecified (principal)
CPT/HCPCS: 36415; 82728; 83540; 83550; 85025

== ENCOUNTER 2021-02-11 20:56 | Emergency (ER) | payer OTHER ==
[~2021-02-11] VITALS: Ht 172.7 cm; Wt 109.0 kg
[2021-02-11] MEDS ORDERED: normal saline 1000ML IV soln IV ONE (21:45)
[2021-02-11] MEDS ORDERED: pantoprazole 40 MG vial IV ONE (21:45)
[2021-02-11 22:18] LABS: BASOPHILS # (AUTO) 0.1 X10'3 (0-0.2); BASOPHILS % (AUTO) 0.6 % (0-1); EOSINOPHILS # (AUTO) 0.1 X10'3 (0-0.9); EOSINOPHILS % (AUTO) 0.6 % (0-6); HEMATOCRIT 30.4 % (35.0-45.0); HEMOGLOBIN 9.8 g/dl (12.0-16.0); LYMPHOCYTES # (AUTO) 2.4 X10'3 (1.1-4.8); LYMPHOCYTES % (AUTO) 21.9 % (21-51); MEAN CORPUSCULAR HEMOGLOBIN 24.9 PG (27.0-31.0); MEAN CORPUSCULAR HGB CONC 32.1 g/dL (33.0-36.5); MEAN CORPUSCULAR VOLUME 77.5 FL (78-98); MEAN PLATELET VOLUME 8.5 FL (7.4-10.4); MONOCYTES # (AUTO) 0.6 X10'3 (0-0.9); MONOCYTES % (AUTO) 5.8 % (2-12); NEUTROPHILS # (AUTO) 7.8 X10'3 (1.8-7.7); NEUTROPHILS % (AUTO) 71.1 % (42-75); PLATELET COUNT 367 X10'3 (140-440); RED BLOOD COUNT 3.92 X10'6 (4.20-5.60); RED CELL DISTRIBUTION WIDTH 16.2 % (11.5-14.5); WHITE BLOOD COUNT 10.9 X10'3 (4.5-11.0)
[2021-02-11 22:32] LABS: ALANINE AMINOTRANSFERASE 23 U/L (12-78); ALBUMIN 3.9 G/DL (3.4-5.0); ALBUMIN/GLOBULIN RATIO 1.1 (1.1-1.5); ALKALINE PHOSPHATASE 67 IU/L (46-116); ANION GAP 11 (8-16); ASPARTATE AMINO TRANSFERASE 13 U/L (10-37); BILIRUBIN,TOTAL 0.3 MG/DL (0.1-1.0); BLOOD UREA NITROGEN 28 MG/DL (7-18); BUN/CREATININE RATIO 40.6 (6.6-38.0); CALCIUM 8.6 MG/DL (8.5-10.1); CHLORIDE 104 MMOL/L (99-107); CREATININE 0.69 MG/DL (0.40-0.90); GLUCOSE 113 MG/DL (70-104); POTASSIUM 4.1 MMOL/L (3.5-5.1); SODIUM 139 MMOL/L (135-145); TOTAL CARBON DIOXIDE 24.3 MMOL/L (24-32); TOTAL PROTEIN 7.6 G/DL (6.4-8.2); eGFR > 90 ML/MIN
[2021-02-11 23:33] LABS: HEMATOCRIT 28.5 % (35.0-45.0); HEMOGLOBIN 9.2 g/dl (12.0-16.0); MEAN CORPUSCULAR HEMOGLOBIN 24.7 PG (27.0-31.0); MEAN CORPUSCULAR HGB CONC 32.1 g/dL (33.0-36.5); MEAN PLATELET VOLUME 8.4 FL (7.4-10.4); PLATELET COUNT 334 X10'3 (140-440); RED BLOOD COUNT 3.71 X10'6 (4.20-5.60); RED CELL DISTRIBUTION WIDTH 16.4 % (11.5-14.5)
[2021-02-11 23:53] VITALS: BP 115/77
[2021-02-11] MEDS ORDERED: PANT-47 PO (23:58)
[2021-02-15 15:20] LABS: OCCULT BLOOD STOOL NEGATIVE (Neg)
== END 2021-02-12 00:17 | disposition home or self-care (01) ==
LOC: ER 20:57
DX: D64.9 Anemia, unspecified (principal); Z88.5 Allergy status to narcotic agent; Z79.899 Other long term (current) drug therapy
CPT/HCPCS: 36415; 71045; 80053; 83880; 84484; 85025; 85027; 85610; 86885; 86900; 86901; 93005; 96361; 96374; 99285; C9113; J7030; 82272

== ENCOUNTER 2024-08-06 18:29 | Emergency (ER) | payer OTHER ==
[~2024-08-06] VITALS: Ht 172.7 cm; Wt 96.4 kg
[2024-08-06 19:15] LABS: BASOPHILS # (AUTO) 0.1 X10'3 (0-0.2); BASOPHILS % (AUTO) 0.4 % (0-1); EOSINOPHILS # (AUTO) 0.1 X10'3 (0-0.9); EOSINOPHILS % (AUTO) 0.5 % (0-6); HEMATOCRIT 36.2 % (35.0-45.0); LYMPHOCYTES # (AUTO) 1.4 X10'3 (1.1-4.8); LYMPHOCYTES % (AUTO) 10.6 % (21-51); MEAN CORPUSCULAR HEMOGLOBIN 29.1 PG (27.0-31.0); MONOCYTES # (AUTO) 0.7 X10'3 (0-0.9); MONOCYTES % (AUTO) 5.3 % (2-12); NEUTROPHILS # (AUTO) 10.9 X10'3 (1.8-7.7); NEUTROPHILS % (AUTO) 83.2 % (42-75); PLATELET COUNT 356 X10'3 (140-440); RED BLOOD COUNT 4.11 X10'6 (4.20-5.60); RED CELL DISTRIBUTION WIDTH 15.3 % (11.5-14.5); WHITE BLOOD COUNT 13.1 X10'3 (4.5-11.0)
[2024-08-06 19:29] LABS: ALANINE AMINOTRANSFERASE 26 U/L (12-78); ALBUMIN 3.9 G/DL (3.4-5.0); ALKALINE PHOSPHATASE 69 IU/L (46-116); ANION GAP 8 (8-16); ASPARTATE AMINO TRANSFERASE 21 U/L (10-37); BILIRUBIN,TOTAL 0.5 MG/DL (0.1-1.0); BLOOD UREA NITROGEN 13 MG/DL (7-18); BUN/CREATININE RATIO 16.5 (10.0-20.0); CALCIUM 8.9 MG/DL (8.5-10.1); CHLORIDE 103 MMOL/L (99-107); CREATININE 0.79 MG/DL (0.40-0.90); GLUCOSE 107 MG/DL (70-104); LIPASE 22 U/L (16-77); POTASSIUM 3.8 MMOL/L (3.5-5.1); SODIUM 138 MMOL/L (135-145); TOTAL CARBON DIOXIDE 26.9 MMOL/L (24-32); TOTAL PROTEIN 7.9 G/DL (6.4-8.2); eCRCL 96 ML/MIN; eGFR 81 ML/MIN
[2024-08-06 20:18] VITALS: BP 131/79; PULSE 91; RESP 14; TEMP 100.2; O2SAT 98
[2024-08-06 20:29] LABS: BILIRUBIN,URINE NEGATIVE (Neg); CLARITY,URINE CLOUDY (Clear); COLOR,URINE YELLOW (Yellow); GLUCOSE, URINE NEGATIVE (Neg); KETONES,URINE 40 mg/dl (Neg); LEUKOCYTE ESTERASE ,URINE MODERATE (Neg); NITRITES, URINE POSITIVE (Neg); OCCULT BLOOD,URINE LARGE (Neg); PH,URINE 5.5 (4.8-8.0); PROTEIN,URINE 100 mg/dl (Neg); UROBILINOGEN,URINE 0.2 E.U/dL (0.2-1.0)
[2024-08-06 20:32] LABS: URINE HCG NEGATIVE (NEG)
[2024-08-06 20:40] LABS: UA COLLECTION TYPE CLN CATCH MIDSTREAM
[2024-08-06 20:41] LABS: WBC CLUMPS,URINE FEW /HPF (NEGATIVE); WBC,URINE TNTC /HPF (0-4)
[2024-08-06 20:42] LABS: BACTERIA,URINE 2+ /HPF (Neg); SQUAMOUS EPITHELIAL CELL,UR FEW /LPF (FEW)
[2024-08-06 20:43] LABS: MUCUS STRANDS FEW /LPF (Neg); TRANSITIONAL EPI CELLS,URINE FEW /HPF
[2024-08-07] MEDS ORDERED: PHEN-786 PO (09:37)
[2024-08-07] MEDS ORDERED: CIPR-202 PO (09:37)
[2024-08-09] MEDS ORDERED: CEPH-585 PO (06:52)
== END 2024-08-06 23:49 | disposition left against medical advice (07) ==
LOC: ER 18:30
DX: R35.0 Frequency of micturition (principal); R39.15 Urgency of urination; R10.31 Right lower quadrant pain; Z53.21 Procedure and treatment not carried out due to patient leaving prior to being seen by health care provider
CPT/HCPCS: 36415; 80053; 81001; 81025; 83690; 85025; 87077; 87088; 87186